=== PATIENT | female | born 1990 | race Caucasian/White ===

== ENCOUNTER → 2016-08-27 | Outpatient (CLI) | payer BC | LOC: MW.MNT 09:29 | CPT/HCPCS: 97803 ==

== ENCOUNTER 2018-07-12 23:21 | Emergency (ER) | payer BC, OTHER ==
[2018-07-12] MEDS ORDERED: Fluconazole 150 MG Tab PO ONE (23:50)
--- NOTE | 2018-07-12 23:59 | EDM.PDOC ---
ED HPI GENERAL MEDICAL PROBLEM - General Chief Complaint: Genitourinary Problem Stated Complaint: PT HAS YEAST INFECTION Time Seen by Provider: 07/12/18 23:41 - History of Present Illness INITIAL COMMENTS - FREE TEXT/NARRATIVE: HISTORY AND PHYSICAL: History of present illness: The patient is a 28 y/o female who presents with complaints of yeast infection, itching and burning in her vaginal/perineal area and some whitish discharge, that started yesterday but worsened today. She just finished a course of Augmentin for sinusitis and her sinuses are improved but the symptoms started as she was just finishing the antibiotics. The patient denies any vaginal bleeding and has no abdominal pain no fevers no chills and no other vaginal discharge. Patient says she has tried [id number] Monistat and it is still uncomfortable but she has only tried it once. Review of systems: As per history of present illness and below otherwise all systems reviewed and negative. Past medical history: As per history of present illness and as reviewed below otherwise noncontributory. Surgical history: As per history of present illness and as reviewed below otherwise noncontributory. Social history: No reported history of drug or alcohol abuse. Family history: As per history of present illness and as reviewed below otherwise noncontributory. Physical exam: General: Well-developed well-nourished female who is overweight but nontoxic and vital signs are noted by me HEENT: Atraumatic, normocephalic, negative for conjunctival pallor or scleral icterus, mucous membranes moist, throat clear, neck supple, nontender, trachea midline. Lungs: Clear to auscultation, breath sounds equal bilaterally, chest nontender. Heart: S1S2, regular rate and rhythm no overt murmurs. Abdomen: Soft, nondistended, nontender. . NABS Pelvis: . Genitourinary: Patient was offered pelvic exam and declines. Rectal: Deferred. Extremities: Atraumatic, negative for cords or calf pain. Neurovascular unremarkable. Neuro: Awake, alert, oriented. Cranial nerves II through XII unremarkable. Cerebellum unremarkable. Motor and sensory unremarkable throughout. Exam nonfocal. Diagnostics: [] Therapeutics: diflucan Impression: Vaginitis status post antibiotic use Definitive disposition and diagnosis as appropriate pending reevaluation and review of above. urethra Pain Score (Numeric/FACES): 5 - Related Data Allergies Allergy/AdvReac Type Severity Reaction Status Date / Time No Known Allergies Allergy Verified 07/12/18 23:54 Home Meds: Home Meds NIFEdipine [Procardia] 0 mg PO DAILY 07/12/18 [History] Past Medical History HEENT History: Reports: Impaired Vision Other HEENT History: wears glasses Cardiovascular History: Reports: None Respiratory History: Reports: None Gastrointestinal History: Reports: GERD Other Gastrointestinal History: occasional heartburn, food related Genitourinary History: Reports: None [employer] History: Reports: None Musculoskeletal History: Reports: None Neurological History: Reports: None Psychiatric History: Reports: Depression Endocrine/Metabolic History: Reports: Obesity/BMI 30+ Hematologic History: Reports: None Immunologic History: Reports: None Oncologic (Cancer) History: Reports: None Dermatologic History: Reports: None - Past Surgical History Female Surgical History: Reports: Other (See Below) ED ROS GENERAL - Review of Systems Review Of Systems: ROS reveals no pertinent complaints other than HPI. ED EXAM, GENERAL - Physical Exam Exam: See Below (See dictation) Course - Vital Signs Last Recorded V/S: Last Vital Signs Temp 37.1 C 07/12/18 23:40 Pulse 85 07/12/18 23:40 Resp 18 07/12/18 23:40 BP 166/101 H 07/12/18 23:40 Pulse Ox 99 07/12/18 23:40 - Orders/Labs/Meds Meds: Medications Discontinued Medications Generic Name Dose Route Start Last Admin Trade Name Freq PRN Reason Stop Dose Admin Fluconazole 150 mg 07/12/18 23:50 Diflucan PO 07/12/18 23:51 ONETIME ONE Departure - Departure Time of Disposition: 23:58 Disposition: Home, Self-Care 01 Condition: Good Clinical Impression: Vaginitis Qualifiers: Chronicity: acute Qualified Code(s): N76.0 - Acute vaginitis - Discharge Information Referrals: Sheela Avery PA [Primary Care Provider] - Additional Instructions: The following information is given to patients seen in the emergency department who are being discharged to home. This information is to outline your options for follow-up care. We provide all patients seen in our emergency department with a follow-up referral. The need for follow-up, as well as the timing and circumstances, are variable depending upon the specifics of your emergency department visit. If you don't have a primary care physician on staff, we will provide you with a referral. We always advise you to contact your personal physician following an emergency department visit to inform them of the circumstance of the visit and for follow-up with them and/or the need for any referrals to a consulting specialist. The emergency department will also refer you to a specialist when appropriate. This referral assures that you have the opportunity for followup care with a specialist. All of these measure are taken in an effort to provide you with optimal care, which includes your followup. Under all circumstances we always encourage you to contact your private physician who remains a resource for coordinating your care. When calling for followup care, please make the office aware that this follow-up is from your recent emergency room visit. If for any reason you are refused follow-up, please contact the [facility] emergency department at and ask to speak to the emergency department charge nurse. [facility] [address] [facility]. [address] [address] Push hydration and try to avoid scratching and itching the area and use any over -the-counter topicals that you choose. Fill the prescription for second dose of Diflucan as you choose. Return to ER as needed as discussed
[2018-07-13 00:31] VITALS: BP 149/89
== END 2018-07-13 00:26 | disposition home or self-care (01) ==
LOC: MW.ED 23:21
DX: N76.0 Acute vaginitis (principal); I10 Essential (primary) hypertension; Z79.899 Other long term (current) drug therapy
CPT/HCPCS: 82962; 99283; A9270

== ENCOUNTER 2021-05-03 05:42 | Emergency (ER) | payer OTHER ==
--- NOTE | 2021-05-03 06:10 | EDM.PDOC ---
<Kulwinder Faye - Last Filed: 05/03/21 06:07> ED HPI GENERAL MEDICAL PROBLEM - General Chief Complaint: Respiratory Problem Stated Complaint: CHEST PRESSURE Time Seen by Provider: 05/03/21 05:44 Source of Information: Reports: Patient History Limitations: Reports: No Limitations - History of Present Illness INITIAL COMMENTS - FREE TEXT/NARRATIVE: Patient is a 30-year-old female history of depression and anxiety presents today for chest pain. States that the pain woke up out of sleep with substernal radiating to her back and her left arm. Pain not made better or worse with anything. She has had similar pain before in the past has been seen for but never had any findings. She reports some slight shortness of breath able to breathe freely here denies any fever chills cough leg swelling. She did is moved here from [place] and she drove up here about a week ago. Upper Chest Pain Score (Numeric/FACES): 6 - Related Data Allergies Allergy/AdvReac Type Severity Reaction Status Date / Time No Known Allergies Allergy Verified 07/12/18 23:54 Home Meds: Home Meds Acetaminophen/oxyCODONE [Percocet 325-10 MG] 1 tab PO Q4H PRN #14 tab 05/03/21 [Rx] Escitalopram Oxalate [Lexapro] 10 mg PO DAILY 05/03/21 [History] busPIRone [Buspar] 15 mg PO BID 05/03/21 [History] Past Medical History HEENT History: Reports: Impaired Vision Other HEENT History: wears glasses Cardiovascular History: Reports: None Respiratory History: Reports: Other (See Below) Other Respiratory History: covid 2020 Gastrointestinal History: Reports: GERD Other Gastrointestinal History: occasional heartburn, food related Genitourinary History: Reports: None N[employer] History: Reports: None Musculoskeletal History: Reports: None Neurological History: Reports: None Psychiatric History: Reports: Depression Endocrine/Metabolic History: Reports: Obesity/BMI 30+ Hematologic History: Reports: None Immunologic History: Reports: None Oncologic (Cancer) History: Reports: None Dermatologic History: Reports: None - Past Surgical History Head Surgeries/Procedures: Reports: None HEENT Surgical History: Reports: Adenoidectomy, Tonsillectomy Cardiovascular Surgical History: Reports: None Respiratory Surgical History: Reports: None GI Surgical History: Reports: Appendectomy, Bariatric Procedure, Other (See Below) Other GI Surgeries/Procedures: gastric bypass Female Surgical History: Reports: Other (See Below) Other Female Surgeries/Procedures: Laparoscopy Endocrine Surgical History: Reports: None Neurological Surgical History: Reports: None Musculoskeletal Surgical History: Reports: None Oncologic Surgical History: Reports: None Social & Family History - Family History Family Medical History: No Pertinent Family History - Tobacco Use Tobacco Use Status *Q: Never Tobacco User Second Hand Smoke Exposure: No - Recreational Drug Use Recreational Drug Use: No ED ROS GENERAL - Review of Systems Review Of Systems: See Below Constitutional: Reports: No Symptoms HEENT: Reports: No Symptoms Respiratory: Reports: No Symptoms Cardiovascular: Reports: Chest Pain Endocrine: Reports: No Symptoms GI/Abdominal: Reports: No Symptoms : Reports: No Symptoms Musculoskeletal: Reports: No Symptoms Skin: Reports: No Symptoms Neurological: Reports: No Symptoms Psychiatric: Reports: No Symptoms Hematologic/Lymphatic: Reports: No Symptoms Immunologic: Reports: No Symptoms ED EXAM, GENERAL - Physical Exam Exam: See Below Exam Limited By: No Limitations General Appearance: Alert, WD/WN, No Apparent Distress Eye Exam: Bilateral Eye: EOMI, PERRL Ears: Normal External Exam Nose: Normal Inspection Throat/Mouth: Normal Inspection Head: Atraumatic, Other Neck: Normal Inspection, Supple, Non-Tender Respiratory/Chest: No Respiratory Distress, Lungs Clear, Normal Breath Sounds Cardiovascular: Normal Peripheral Pulses, Regular Rate, Rhythm GI/Abdominal: Normal Bowel Sounds, Soft, Non-Tender Extremities: Normal Inspection Neurological: Alert, Oriented, CN II-XII Intact, Normal Cognition, Normal Gait #1 Interpretation EKG Date: 05/03/21 Time: 05:46 Rhythm: NSR Rate (Beats/Min): 71 ST-T: Normal Departure - Departure Disposition: Home, Self-Care 01 Clinical Impression: Chest pain - Discharge Information Prescriptions: Acetaminophen/oxyCODONE [Percocet 325-10 MG] 1 tab PO Q4H PRN #14 tab PRN Reason: Pain (Severe 7-10) Instructions: Nonspecific Chest Pain, Adult, [id number] Referrals: PCP,None [Primary Care Provider] - Forms: ED Department Discharge Additional Instructions: Make an appointment follow-up with primary care. [facility] - Primary Care [address] [place] [id number] [facility] [address] [place] [id number] The following information is given to patients seen in the emergency department who are being discharged to home. This information is to outline your options for follow-up care. We provide all patients seen in our emergency department with a follow-up referral. The need for follow-up, as well as the timing and circumstances, are variable depending upon the specifics of your emergency department visit. If you don't have a primary care physician on staff, we will provide you with a referral. We always advise you to contact your personal physician following an emergency department visit to inform them of the circumstance of the visit and for follow-up with them and/or the need for any referrals to a consulting specialist. The emergency department will also refer you to a specialist when appropriate. This referral assures that you have the opportunity for follow-up care with a specialist. All of these measure are taken in an effort to provide you with optimal care, which includes your follow-up. Under all circumstances we always encourage you to contact your private physician who remains a resource for coordinating your care. When calling for follow-up care, please make the office aware that this follow-up is from your recent emergency room visit. If for any reason you are refused follow-up, please contact the [facility] Emergency Department at and asked to speak to the emergency department charge nurse. Sepsis Event Note (ED) - Evaluation Sepsis Screening Result: No Definite Risk - Assessment/Plan Plan: Patient is a 30-year-old female who presents today for chest pain substernal radiating to her back and left arm. Patient looks well on exam no concerning EKG findings she did have recent travel up here from [place] in the car ride. We will obtain EKG labs D-dimer and reassess. <Tarik Gutierrez - Last Filed: 05/03/21 12:40> Course - Vital Signs Text/Narrative:: 12:39 PM the patient's markedly improved. We have reasonably ruled out pulmonary embolus cardiac ischemia and any life-threatening cause of her pain which is improved now. Plan discharge. Last Recorded V/S: Last Vital Signs Temp 36.6 C 05/03/21 05:50 Pulse 68 05/03/21 10:46 Resp 17 05/03/21 08:16 BP 139/68 05/03/21 10:46 Pulse Ox 96 05/03/21 10:46 - Orders/Labs/Meds Orders: Active Orders 24 hr Category Date Time Status CULTURE URINE [MREF] Stat Lab 05/03/21 06:10 Received Labs: Laboratory Tests 05/03/21 05/03/21 05/03/21 Range/Units 05:56 05:56 05:56 WBC 10.57 (4.0-11.0) K/uL RBC 5.19 (4.30-5.90) M/uL Hgb 11.5 L (12.0-16.0) g/dL Hct 36.3 (36.0-46.0) % MCV 69.9 L (80.0-98.0) fL MCH 22.2 L (27.0-32.0) pg MCHC 31.7 (31.0-37.0) g/dL RDW Std Deviation 40.6 (28.0-62.0) fl RDW Coeff of Grzegorz 16 H (11.0-15.0) % Plt Count 296 (150-400) K/uL MPV 10.00 (7.40-12.00) fL Neut % (Auto) 66.7 (48.0-80.0) % Lymph % (Auto) 24.0 (16.0-40.0) % [place] % (Auto) 8.3 (0.0-15.0) % Eos % (Auto) 0.8 (0.0-7.0) % Baso % (Auto) 0.2 (0.0-1.5) % Neut # (Auto) 7.1 H (1.4-5.7) K/uL Lymph # (Auto) 2.5 H (0.6-2.4) K/uL [place] # (Auto) 0.9 H (0.0-0.8) K/uL Eos # (Auto) 0.1 (0.0-0.7) K/uL Baso # (Auto) 0.0 (0.0-0.1) K/uL INR 1.02 APTT 25.4 (18.6-31.3) SEC D-Dimer, Quantitative 0.90 H (0.0-0.50) mg/L FEU Sodium 139 (136-145) mmol/L Potassium 3.8 (3.5-5.1) mmol/L Chloride 103 (98-107) mmol/L Carbon Dioxide 27.5 (21.0-32.0) mmol/L BUN 13 (7.0-18.0) mg/dL Creatinine 0.8 (0.6-1.0) mg/dL Est Cr Clr Drug Dosing 86.60 mL/min Estimated GFR (MDRD) > 60.0 ml/min Glucose 111 H (74-106) mg/dL Calcium 8.7 (8.5-10.1) mg/dL Phosphorus 4.0 (2.6-4.7) mg/dL Magnesium 2.1 (1.8-2.4) mg/dL Total Bilirubin 0.8 (0.2-1.0) mg/dL AST 190 H (15-37) IU/L ALT 73 H (14-63) IU/L Alkaline Phosphatase 151 H (46-116) U/L Creatine Kinase 89 (26-308) U/L Troponin I < 0.050 (0.000-0.056) ng/mL Total Protein 7.4 (6.4-8.2) g/dL Albumin 3.5 (3.4-5.0) g/dL Globulin 3.9 (2.6-4.0) g/dL Albumin/Globulin Ratio 0.9 (0.9-1.6) Lipase 86 (73-393) U/L Urine Color Urine Appearance Urine pH (5.0-8.0) Ur Specific Tensed (1.001-1.035) Urine Protein (NEGATIVE) mg/dL Urine Glucose (UA) (NEGATIVE) mg/dL Urine Ketones (NEGATIVE) mg/dL Urine Occult Blood (NEGATIVE) Urine Nitrite (NEGATIVE) Urine Bilirubin (NEGATIVE) Urine Urobilinogen (<2.0) EU/dL Ur Leukocyte Esterase (NEGATIVE) Urine RBC (0-2/HPF) Urine WBC (0-5/HPF) Ur Epithelial Cells (NONE-FEW) Urine Bacteria (NEGATIVE) Urine Mucus (NONE-MOD) Urine HCG, Qual (NEGATIVE) SARS-CoV-2 RNA (JUANCARLOS) (NEGATIVE) 05/03/21 05/03/21 05/03/21 Range/Units 06:10 06:10 08:42 WBC (4.0-11.0) K/uL RBC (4.30-5.90) M/uL Hgb (12.0-16.0) g/dL Hct (36.0-46.0) % MCV (80.0-98.0) fL MCH (27.0-32.0) pg MCHC (31.0-37.0) g/dL RDW Std Deviation (28.0-62.0) fl RDW Coeff of Grzegorz (11.0-15.0) % Plt Count (150-400) K/uL MPV (7.40-12.00) fL Neut % (Auto) (48.0-80.0) % Lymph % (Auto) (16.0-40.0) % [place] % (Auto) (0.0-15.0) % Eos % (Auto) (0.0-7.0) % Baso % (Auto) (0.0-1.5) % Neut # (Auto) (1.4-5.7) K/uL Lymph # (Auto) (0.6-2.4) K/uL [place] # (Auto) (0.0-0.8) K/uL Eos # (Auto) (0.0-0.7) K/uL Baso # (Auto) (0.0-0.1) K/uL INR APTT (18.6-31.3) SEC D-Dimer, Quantitative (0.0-0.50) mg/L FEU Sodium (136-145) mmol/L Potassium (3.5-5.1) mmol/L Chloride (98-107) mmol/L Carbon Dioxide (21.0-32.0) mmol/L BUN (7.0-18.0) mg/dL Creatinine (0.6-1.0) mg/dL Est Cr Clr Drug Dosing mL/min Estimated GFR (MDRD) ml/min Glucose (74-106) mg/dL Calcium (8.5-10.1) mg/dL Phosphorus (2.6-4.7) mg/dL Magnesium (1.8-2.4) mg/dL Total Bilirubin (0.2-1.0) mg/dL AST (15-37) IU/L ALT (14-63) IU/L Alkaline Phosphatase (46-116) U/L Creatine Kinase (26-308) U/L Troponin I (0.000-0.056) ng/mL Total Protein (6.4-8.2) g/dL Albumin (3.4-5.0) g/dL Globulin (2.6-4.0) g/dL Albumin/Globulin Ratio (0.9-1.6) Lipase (73-393) U/L Urine Color YELLOW Urine Appearance CLEAR Urine pH 7.0 (5.0-8.0) Ur Specific Tensed 1.025 (1.001-1.035) Urine Protein NEGATIVE (NEGATIVE) mg/dL Urine Glucose (UA) NEGATIVE (NEGATIVE) mg/dL Urine Ketones NEGATIVE (NEGATIVE) mg/dL Urine Occult Blood NEGATIVE (NEGATIVE) Urine Nitrite POSITIVE H (NEGATIVE) Urine Bilirubin NEGATIVE (NEGATIVE) Urine Urobilinogen 2.0 H (<2.0) EU/dL Ur Leukocyte Esterase TRACE H (NEGATIVE) Urine RBC 0-2 (0-2/HPF) Urine WBC 5-10 (0-5/HPF) Ur Epithelial Cells FEW (NONE-FEW) Urine Bacteria 4+ H (NEGATIVE) Urine Mucus LIGHT (NONE-MOD) Urine HCG, Qual NEGATIVE (NEGATIVE) SARS-CoV-2 RNA (JUANCARLOS) NEGATIVE (NEGATIVE) Meds: Medications Discontinued Medications Generic Name Dose Route Start Last Admin Trade Name Odilonq PRN Reason Stop Dose Admin Acetaminophen 1,000 mg 05/03/21 08:07 05/03/21 08:13 Acetaminophen 500 Mg Tab PO 05/03/21 08:08 1,000 mg ONETIME ONE Administration Ibuprofen 600 mg 05/03/21 07:51 05/03/21 08:01 Ibuprofen 600 Mg Tab PO 05/03/21 07:52 Not Given ONETIME ONE Iopamidol 75 ml 05/03/21 07:23 05/03/21 07:25 Iopamidol 755 Mg/Ml 500 Ml Multipack Bottle IVPUSH 05/03/21 07:24 75 ml ONETIME STA Administration Morphine Sulfate 4 mg 05/03/21 09:10 05/03/21 09:17 Morphine 4 Mg/Ml Vial IVPUSH 05/03/21 09:11 4 mg ONETIME ONE Administration - Re-Assessments/Exams Free Text/Narrative Re-Assessment/Exam: 05/03/21 07:25 Accepted the patient in signout at the end of my partner shift. Patient is apparently stable. There is a CT angio pending and he felt like the patient can probably go home if it is negative. We have to discuss the significance of the amount of pulmonary embolus if 1 is presently whether or not the patient can give herself Lovenox shots. Departure - Departure Time of Disposition: 12:39 Condition: Good Sepsis Event Note (ED) - Focused Exam Vital Signs: Vital Signs Temp Pulse Resp BP Pulse Ox 05/03/21 10:46 68 139/68 96 05/03/21 10:16 68 129/60 96 05/03/21 09:46 75 144/72 H 95 05/03/21 09:16 68 153/79 H 97 05/03/21 08:57 69 172/82 H 97 05/03/21 08:16 73 17 172/76 H 98 05/03/21 07:54 66 148/71 H 98 05/03/21 07:00 69 98 05/03/21 05:50 36.6 C 74 18 152/65 H 98 - My Orders Last 24 Hours: My Active Orders 05/03/21 06:10 CULTURE URINE [MREF] Stat - Assessment/Plan Last 24 Hours: My Active Orders 05/03/21 06:10 CULTURE URINE [MREF] Stat
[2021-05-03 06:36] LABS: BLOOD UREA NITROGEN,BUN 13 mg/dL (7.0-18.0); CARBON DIOXIDE,CO2 27.5 mmol/L (21.0-32.0); CHLORIDE,CL 103 mmol/L (98-107); GLUCOSE RANDOM 111 mg/dL (74-106); LIPASE 86 U/L (73-393); POTASSIUM,K 3.8 mmol/L (3.5-5.1); SODIUM,NA 139 mmol/L (136-145)
--- NOTE | 2021-05-03 06:49 | CR ---
INDICATION: Chest pain. TECHNIQUE: Chest 1 view. COMPARISON: None. FINDINGS: No focal consolidation, pleural effusion, or pneumothorax. The heart is mildly prominent size but likely exaggerated by portable technique. Normal pulmonary vascularity. The bones are unremarkable. IMPRESSION: The heart is mildly prominent in size but likely exaggerated by portable technique. No other acute cardiopulmonary findings. Dictated by Verito Constantino MD @ 05/03/2021 6:46:51 AM (Electronically Signed)
[2021-05-03] MEDS ORDERED: Iopamidol 755 MG/ML 500 ML Multipack Bottle IVPUSH STA (07:23)
[2021-05-03] MEDS ORDERED: Ibuprofen 600 MG Tab PO ONE (07:51)
[2021-05-03] MEDS ORDERED: Acetaminophen 500 MG Tab PO ONE (08:07)
--- NOTE | 2021-05-03 08:21 | CT ---
INDICATION: Rule out PE, elevated D-dimer. COMPARISON: Chest radiograph 05/03/2021. TECHNIQUE: CT of the chest with 75 cc of Isovue 370 IV contrast. Coronal and sagittal reconstructions. 3D post processing was performed. FINDINGS: Normal heart size. Normal caliber thoracic aorta and central pulmonary arteries. Negative for acute pulmonary embolism. No pericardial effusion. Small amount of soft tissue density in the anterior mediastinum likely represents residual thymic tissue. No thoracic lymphadenopathy. There are subtle ground-glass opacities in the left upper lobe and left lower lobe which may be infectious or inflammatory. No dense consolidation. No pleural effusion or pneumothorax. No central endobronchial lesion or bronchial wall thickening. The Two adjacent small noncalcified pulmonary nodules in the right middle lobe measuring up to 4 mm (series 402 images [id number]). 2 mm noncalcified pulmonary nodule in the lateral right lower lobe (image 90). 4 mm noncalcified pulmonary nodule in the lateral left lower lobe (image 87). These are likely benign given patient`s age. The imaged thyroid gland is normal in appearance. Postoperative changes of Rahul-en-Y gastric bypass. The excluded stomach is mildly distended and fluid-filled which could be due to gastrogastric fistula or reflux of small bowel contents. The gallbladder is distended without obvious inflammation. The visualized upper abdomen is otherwise unremarkable. The bones are unremarkable. IMPRESSION: 1. Negative for acute pulmonary embolism. 2. Subtle ground-glass opacities in the left upper lobe and left lower lobe may be infectious or inflammatory. 3. The excluded stomach is mildly distended and fluid-filled which could be due to gastrogastric fistula or reflux of small bowel contents. Please note that all CT scans at this facility use dose modulation, iterative reconstruction, and/or weight-based dosing when appropriate to reduce radiation dose to as low as reasonably achievable. Dictated by Verito Constantino MD @ 05/03/2021 8:20:46 AM (Electronically Signed)
[2021-05-03] MEDS ORDERED: Morphine 4 MG/ML VIAL IVPUSH ONE (09:10)
--- NOTE | 2021-05-03 12:33 | US ---
INDICATION: Elevated LFTs, dilated gallbladder TECHNIQUE: Multiple grayscale sonographic images of the right upper quadrant the abdomen. COMPARISON: None FINDINGS: Liver: Unremarkable where visualized. Common bile duct: Normal caliber measuring up to 3 mm. Gallbladder: No stones or sludge. No wall thickening or pericholecystic fluid. Pancreas: Unremarkable visualized proximal pancreas . Remainder of the pancreas is obscured Right kidney: Measures 0.3 cm in length. Grossly unremarkable no hydronephrosis. IMPRESSION: No sonographic evidence of cholecystitis. Dictated by Srinivasa No MD @ 05/03/2021 12:31:12 PM (Electronically Signed)
[2021-05-03 12:50] VITALS: BP 131/71; PULSE 65
== END 2021-05-03 12:56 | disposition home or self-care (01) ==
LOC: MW.ED 05:42
DX: R07.2 Precordial pain (principal); E66.9 Obesity, unspecified; Z68.42 Body mass index [BMI] 45.0-49.9, adult
CPT/HCPCS: 71045; 71275; 76705; 80053; 81001; 81025; 82550; 83690; 83735; 84100; 84484; 85025; 85379; 85610; 85730; 87086; 87088; 87186; 87635; 96374; 99285; A9270; J2270; Q9967; U0002

== ENCOUNTER 2023-07-27 11:08 | Emergency (ER) | payer SELFPAY ==
[2023-07-27 11:40] LABS: BILIRUBIN,URINE NEGATIVE (NEGATIVE); COLOR,URINE YELLOW; GLUCOSE,URINE NEGATIVE (NEGATIVE); KETONES,URINE NEGATIVE (NEGATIVE); LEUKOCYTE ESTERASE,URINE NEGATIVE (NEGATIVE); NITRITE,URINE POSITIVE (NEGATIVE); OCCULT BLOOD,URINE SMALL (NEGATIVE); PH,URINE 5.5 (5.0-8.0); PROTEIN,URINE NEGATIVE (NEGATIVE); UROBILINOGEN,URINE 0.2 EU/dL (<2.0)
[2023-07-27 11:41] LABS: APPEARANCE,URINE HAZY
[2023-07-27] MEDS ORDERED: Lidocaine 4% 1 each Patch TOP STA (11:52)
[2023-07-27 12:03] LABS: RBC,URINE 0-2 (0-2/HPF)
[2023-07-27 12:04] LABS: BACTERIA,URINE FEW (NEGATIVE); CALCIUM OXALATE CRYSTALS,URINE MODERATE (NEGATIVE); EPITHELIAL CELLS,URINE MODERATE (NONE-FEW); WBC,URINE 0-3 (0-5/HPF); YEAST,URINE OCCASIONAL
[2023-07-27] MEDS ORDERED: Ondansetron 4 MG Tab.DIS PO ONE (12:07)
[2023-07-27 12:11] VITALS: PULSE 62
[2023-07-27] MEDS ORDERED: Orphenadrine 60 MG/2 ML Inj IM ONE (13:26)
[2023-07-27 14:09] VITALS: BP 134/68
== END 2023-07-27 14:08 | disposition home or self-care (01) ==
LOC: MW.ED 11:08
DX: M54.6 Pain in thoracic spine (principal); E66.9 Obesity, unspecified; Z90.49 Acquired absence of other specified parts of digestive tract; Z79.899 Other long term (current) drug therapy; Z88.8 Allergy status to other drugs, medicaments and biological substances; Z68.41 Body mass index [BMI] 40.0-44.9, adult; W00.0XXA Fall on same level due to ice and snow, initial encounter
CPT/HCPCS: 72128; 72131; 81001; 81025; 87086; 96372; 99284; A9270; J2360

== ENCOUNTER 2024-04-24 09:00 | Emergency (ER) | payer BC ==
[2024-04-24] MEDS ORDERED: Sodium Chloride 0.9% 10 ML Syringe FLUSH PRN (09:07)
[2024-04-24] MEDS ORDERED: Sodium Chloride 0.9% 2.5 ML Syringe FLUSH PRN (09:07)
[2024-04-24 09:28] LABS: BASOPHILS ABSOLUTE AUTO 0.05 K/uL (0.00-0.20); BASOPHILS PERCENT AUTO 1.1 % (0.0-1.0); EOSINOPHILS ABSOLUTE AUTO 0.04 K/uL (0.00-0.45); EOSINOPHILS PERCENT AUTO 0.9 % (0.0-6.0); HEMATOCRIT 31.7 % (37.0-47.0); HEMOGLOBIN 9.2 g/dL (12.0-16.0); IMMATURE GRAN ABSOLUTE AUTO 0.01 K/uL (0.00-0.05); IMMATURE GRAN PERCENT AUTO 0.2 % (0.0-0.4); LYMPHOCYTES ABSOLUTE AUTO 1.15 K/uL (1.00-4.80); LYMPHOCYTES PERCENT AUTO 25.9 % (24.0-44.0); MEAN CORPUSCULAR HEMOGLOBIN 19.3 pg (28.0-32.0); MEAN CORPUSCULAR VOLUME 66.5 fL (83.0-99.0); MEAN PLATELET VOLUME 9.5 fL (9.4-12.3); MONOCYTES ABSOLUTE AUTO 0.52 K/uL (0.00-0.80); MONOCYTES PERCENT AUTO 11.7 % (0.0-8.0); NEUTROPHILS ABSOLUTE AUTO 2.67 K/uL (1.80-7.70); NEUTROPHILS PERCENT AUTO 60.2 % (41.0-71.0); PLATELET COUNT,PLT 296 K/uL (150-400); RED BLOOD CELL COUNT 4.77 M/uL (4.10-5.30); WHITE BLOOD CELL COUNT,WBC 4.44 K/uL (3.9-11.3)
[2024-04-24 09:50] LABS: A/G RATIO 1.1 (0.9-1.6); ALANINE AMINOTRANSFERASE,ALT 21 IU/L (14-63); ALBUMIN 3.8 g/dL (3.4-5.0); ALKALINE PHOSPHATASE 104 U/L (46-116); ASPARTATE AMNIOTRANSFERASE,AST 16 IU/L (15-37); BILIRUBIN TOTAL 0.4 mg/dL (0.2-1.0); BLOOD UREA NITROGEN,BUN 13 mg/dL (7.0-18.0); CALCIUM 8.9 mg/dL (8.5-10.1); CARBON DIOXIDE,CO2 27.8 mmol/L (21.0-32.0); CHLORIDE,CL 106 mmol/L (98-107); CREATININE 0.8 mg/dL (0.6-1.0); EST CRCL DRUG DOSING (CG) 95.38 mL/min; ESTIMATED GFR 101 mL/min (>60); ETHANOL BLOOD MEDICAL <3 mg/dL; GLUCOSE RANDOM 68 mg/dL (74-106); POTASSIUM,K 3.7 mmol/L (3.5-5.1); PROTEIN TOTAL,TP 7.3 g/dL (6.4-8.2); SODIUM,NA 141 mmol/L (136-145)
[2024-04-24 10:02] LABS: APPEARANCE,URINE CLEAR; BILIRUBIN,URINE NEGATIVE (NEGATIVE); COLOR,URINE YELLOW; GLUCOSE,URINE NEGATIVE (NEGATIVE); KETONES,URINE NEGATIVE (NEGATIVE); LEUKOCYTE ESTERASE,URINE NEGATIVE (NEGATIVE); NITRITE,URINE NEGATIVE (NEGATIVE); OCCULT BLOOD,URINE NEGATIVE (NEGATIVE); PROTEIN,URINE NEGATIVE (NEGATIVE); UROBILINOGEN,URINE 0.2 EU/dL (<2.0)
[2024-04-24 10:12] LABS: AMPHETAMINES SCREEN, URINE PRESUMPTIVE POSITIVE (CUTOFF=500); BARBITURATE SCREEN,URINE NEGATIVE (CUTOFF=200); BENZODIAZEPINES SCREEN,URINE PRESUMPTIVE POSITIVE (CUTOFF=150); BUPRENORPHINE SCREEN,URINE NEGATIVE (CUTOFF=10); METHADONE SCREEN, URINE NEGATIVE (CUTOFF=200); METHAMPHETAMINES SCREEN, URINE NEGATIVE (CUTOFF=500); OXYCODONE SCREEN,URINE NEGATIVE (CUT0FF=100); PCP SCREEN,URINE PRESUMPTIVE POSITIVE (CUTOFF=25); THC SCREEN,URINE 20 NG/ML NEGATIVE (CUTOFF=50)
[2024-04-24] MEDS: Acetaminophen 500 MG Tab PO ONE (10:13)
[2024-04-24] MEDS: Albuterol/Ipratropium 3.0-0.5 MG/3 ML Neb Soln NEB ONE (10:51)
[2024-04-24 11:26] VITALS: BP 129/63; PULSE 71
== END 2024-04-24 12:43 | disposition home or self-care (01) ==
LOC: MW.ED 09:00
DX: R56.9 Unspecified convulsions (principal); E66.9 Obesity, unspecified; Z68.36 Body mass index [BMI] 36.0-36.9, adult; Z90.49 Acquired absence of other specified parts of digestive tract; Z79.899 Other long term (current) drug therapy; Z88.6 Allergy status to analgesic agent; Z75.8 Other problems related to medical facilities and other health care
CPT/HCPCS: 36415; 70450; 80053; 80305; 80307; 81003; 81025; 84146; 85025; 99285; A9270; 99283